=== PATIENT | female | born 1980 | race African-American/Black ===

== ENCOUNTER 2017-02-06 12:14 | Emergency (ER) | payer OTHER ==
[~2017-02-06] VITALS: Ht 162.6 cm; Wt 75.0 kg
[2017-02-06] MEDS ORDERED: PREN27TA3 PO (12:34)
[2017-02-06] MEDS ORDERED: MAGN250T9 PO (12:34)
[2017-02-06 13:38] LABS: BASO % 0.1 % (0.0-1.0); EOS # 0.1 K/mm3 (0.0-0.50); LARGE UNSTAINED CELL # 0.1 K/mm3 (0.0-0.4); LARGE UNSTAINED CELL % 1.4 % (0.0-4.0); LYMPH # 0.8 K/mm3 (1.5-4.5); LYMPH % 10.7 % (24.0-44.0); MEAN CORPUSCULAR HEMOGLOBIN 28.3 pg (27.0-33.0); MEAN CORPUSCULAR HGB CONC 33.3 g/dl (32.0-36.5); MEAN CORPUSCULAR VOLUME 84.8 fl (80.0-96.0); MONO # 0.3 K/mm3 (0.0-0.8); MONO % 3.4 % (0.0-5.0); NEUTROPHILS # 6.5 K/mm3 (1.8-7.7); NEUTROPHILS % 83.4 % (36.0-66.0); PLATELET COUNT, AUTOMATED 287 k/mm3 (150-450); RED CELL DISTRIBUTION WIDTH 14.3 % (11.5-14.5); WHITE BLOOD COUNT 7.7 K/mm3 (4.0-10.0)
[2017-02-06] MEDS ORDERED: MACR100C43 PO (14:16)
[2017-02-06] MEDS ORDERED: NITROFURANTOIN (MACROBID) 100 MG CAP PO ONE (14:30)
[2017-02-06 14:36] VITALS: BP 125/85
== END 2017-02-06 14:41 | disposition home or self-care (01) ==
LOC: M ED 12:14
DX: O23.10 Infections of bladder in pregnancy, unspecified trimester (principal); Z3A.13 13 weeks gestation of pregnancy

== ENCOUNTER 2017-05-16 07:37 | Outpatient (CLI) | payer OTHER ==
[~2017-05-16] VITALS: Ht 165.1 cm; Wt 84.5 kg
[~2017-05-16 07:37] MED LIST: MACR100C43 PO; MAGN250T9 PO; PREN27TA3 PO
[2017-05-16 08:16] VITALS: BP 135/86
--- NOTE | 2017-05-16 10:02 | IPNPDOC ---
Text Note Date of Service The patient was seen on 05/16/17. NOTE Fide is a 37yo with SIUP at 28+ wk who presents to L&D triage with chief complaint of scant dark brown vaginal spotting noted on a panty liner. course uncomplicated, has known fibroid uterus. Had an episode of spotting a few days ago and called triage line, kept an eye on it as instructed. She has occasional Saeid Valdivia, no consistent ctx or cramping. currently deployed so no recent intercourse. Feels good movement. Notes only prior whitish discharge, no vaginal itching or abnormal odor. Formal 20wk ultrasound reviewed: 4 medium fibroids, no placenta previa Vitals wnl, afebrile General: WDWN, resting comfortably in bed Abdomen: soft, NT, ND, gravid SSE (ZAINAB Gloria as database programmer analyst): copious thick white clumpy discharge noted that took a few daley swabs to remove from vaginal vault, no blood present in discharge or in vault SCE gently performed- closed/thick/high TAUS: tavarez IUP with cephalic presentation, IZABELLA 11cm, +FCA, +FM, anterior placenta with no obvious abnormalities NST: reassuring for gestational age, bl 130's, +accels, -decels, mod martina Grandfield: no ctx Labs: RADHA/WP: abundant budding yeast and hyphae, no clue cells or trichomonas Assessment: Fide is a 37yo with SIUP at 28+ wk with no obvious source for vaginal bleeding, no confirmed presence of blood on exam, no evidence of PTL, no placental abnormalities, but exam significant for yeast infection despite patient having no vaginal itching. Copious yeast-like discharge and abundant budding yeast and hyphae on RADHA/WP. Reassuring status with NST and IZABELLA 11cm. Vitals wnl. Plan: -Discharge to home -Rx 3 day clotrimazole cream to [facility], patient instructed how to use -Keep next OB appt 05/20 -Return precautions discussed Dr. Barby Christie MD [facility] VS,Fishbone, I+O VS, Fishbone, I+O Vital Signs Date Time Temp Pulse Resp B/P (MAP) Pulse Ox O2 Delivery O2 Flow Rate FiO2 05/16/17 08:16 99.0 82 20 135/86 (102) Room Air Barby Christie MD May 16, 2017 10:02
== END 2017-05-16 09:45 | disposition home or self-care (01) ==
LOC: M LDO 07:37
PROVIDERS: ATTEND Obstetrics & Gynecology
DX: O26.893 Other specified pregnancy related conditions, third trimester (principal); Z3A.28 28 weeks gestation of pregnancy; N89.8 Other specified noninflammatory disorders of vagina; D25.9 Leiomyoma of uterus, unspecified; B37.3 Candidiasis of vulva and vagina; O34.13 Maternal care for benign tumor of corpus uteri, third trimester

== ENCOUNTER 2017-06-20 11:57 | Inpatient (IN) | payer OTHER ==
[2017-06-20] MEDS ORDERED: NIFEdipine 10 MG CAP As Ordered (12:51)
[2017-06-20] MEDS: NIFEdipine 10 MG CAP PO ×2 (12:56→13:57)
[2017-06-20 13:00] LABS: AMPHETAMINES URINE REFLEX NEGATIVE (NEGATIVE); BARBITURATES URINE REFLEX NEGATIVE (NEGATIVE); BENZODIAZEPINES URINE REFLEX NEGATIVE (NEGATIVE); CANNABINOIDS URINE REFLEX NEGATIVE (NEGATIVE); COCAINE METABOLITE URINE REFLE NEGATIVE (NEGATIVE); METHADONE URINE REFLEX NEGATIVE (NEGATIVE); OPIATES URINE REFLEX NEGATIVE (NEGATIVE); PHENCYCLIDINE URINE REFLEX NEGATIVE (NEGATIVE)
[2017-06-20 13:01] LABS: CREATININE,RANDOM URINE 16.7 MG/DL
[2017-06-20 13:01] LABS: TOTAL PROTEIN,RANDOM URINE 125.9 MG/DL (0.0-12.0)
[2017-06-20 13:04] LABS: HEMATOCRIT 33.2 % (36.0-47.0); MEAN CORPUSCULAR HEMOGLOBIN 28.1 pg (27.0-33.0); MEAN CORPUSCULAR HGB CONC 33.1 g/dl (32.0-36.5); MEAN CORPUSCULAR VOLUME 84.7 fl (80.0-96.0); PLATELET COUNT, AUTOMATED 151 10^3/uL (150-450); RED BLOOD COUNT 3.92 10^6/uL (4.00-5.40); RED CELL DISTRIBUTION WIDTH 15.9 % (11.5-14.5); WHITE BLOOD COUNT 7.2 10^3/uL (4.0-10.0)
[2017-06-20 13:54] LABS: ALKALINE PHOSPHATASE 85 U/L (45-117); ALT/SGPT 42 U/L (12-78); ANION GAP 8 MEQ/L (8-16); AST/SGOT 51 U/L (7-37); BILIRUBIN,TOTAL 0.3 MG/DL (0.2-1.0); BLOOD UREA NITROGEN 8 MG/DL (7-18); CALCIUM LEVEL 9.5 MG/DL (8.5-10.1); CARBON DIOXIDE LEVEL 27 MEQ/L (21-32); CHLORIDE LEVEL 102 MEQ/L (98-107); CREATININE FOR GFR 0.59 MG/DL (0.55-1.02); GLOMERULAR FILTRATION RATE > 60.0 (>60); GLUCOSE, FASTING 71 MG/DL (70-100); POTASSIUM SERUM 4.1 MEQ/L (3.5-5.1); SODIUM LEVEL 137 MEQ/L (136-145); TOTAL PROTEIN 7.3 GM/DL (6.4-8.2)
[2017-06-20] MEDS ORDERED: LABETALOL HCL 100 MG/20 ML VIAL As Ordered (14:19)
[2017-06-20] MEDS: BETAMETHASONE SOLUSPAN 6MG/ML INJ 5ML (J0702) IM (14:34)
[2017-06-20] MEDS: LABETALOL HCL 100 MG/20 ML VIAL IV (14:42)
[2017-06-20] MEDS: LR 1,000 ML IV ×2 (14:49→22:21)
[2017-06-20] MEDS: diphenhydrAMINE INJ 50MG/ML VIAL (J1200) IV (15:28)
[2017-06-20] MEDS: PROCHLORPERAZINE 10 MG/2 ML VIAL (J0780) IV (15:46)
[2017-06-20] MEDS: ACETAMINOPHEN 500 MG TAB PO (17:17)
[2017-06-20 20:01] LABS: HEMATOCRIT 31.2 % (36.0-47.0); HEMOGLOBIN 10.4 g/dl (12.0-16.0); MEAN CORPUSCULAR HEMOGLOBIN 27.7 pg (27.0-33.0); MEAN CORPUSCULAR HGB CONC 33.3 g/dl (32.0-36.5); MEAN CORPUSCULAR VOLUME 83.2 fl (80.0-96.0); PLATELET COUNT, AUTOMATED 137 10^3/uL (150-450); RED BLOOD COUNT 3.75 10^6/uL (4.00-5.40); RED CELL DISTRIBUTION WIDTH 15.8 % (11.5-14.5); WHITE BLOOD COUNT 9.6 10^3/uL (4.0-10.0)
[2017-06-20 20:38] LABS: ALBUMIN 2.6 GM/DL (3.2-5.2); ALBUMIN/GLOBULIN RATIO 0.63 (1.00-1.93); ALKALINE PHOSPHATASE 79 U/L (45-117); ALT/SGPT 93 U/L (12-78); ANION GAP 8 MEQ/L (8-16); AST/SGOT 120 U/L (7-37); BILIRUBIN,TOTAL 0.5 MG/DL (0.2-1.0); BLOOD UREA NITROGEN 7 MG/DL (7-18); CALCIUM LEVEL 8.7 MG/DL (8.5-10.1); CARBON DIOXIDE LEVEL 24 MEQ/L (21-32); CHLORIDE LEVEL 103 MEQ/L (98-107); CREATININE FOR GFR 0.53 MG/DL (0.55-1.02); GLOMERULAR FILTRATION RATE > 60.0 (>60); GLUCOSE, FASTING 104 MG/DL (70-100); POTASSIUM SERUM 3.6 MEQ/L (3.5-5.1); SODIUM LEVEL 135 MEQ/L (136-145); TOTAL PROTEIN 6.7 GM/DL (6.4-8.2)
[2017-06-20] MEDS ORDERED: CALCIUM GLUCONATE 1,000 MG in D5W MINI-BAG PLUS 100 ML IV (22:45)
[2017-06-20] MEDS: MAG Sulf (L&D) 4 GM/100 ML 4 GM in APPROPRIATE DILUENT 1 EA IV (23:04)
[2017-06-20] MEDS: MAG Sulf (OBGYN) 20GM/500ML 20,000 MG in APPROPRIATE DILUENT 1 EA IV (23:27)
[2017-06-21] MEDS: LR 1,000 ML IV (06:21)
[2017-06-21 06:31] LABS: HEMATOCRIT 29.8 % (36.0-47.0); HEMOGLOBIN 9.9 g/dl (12.0-16.0); MEAN CORPUSCULAR HEMOGLOBIN 27.7 pg (27.0-33.0); MEAN CORPUSCULAR HGB CONC 33.2 g/dl (32.0-36.5); MEAN CORPUSCULAR VOLUME 83.5 fl (80.0-96.0); PLATELET COUNT, AUTOMATED 147 10^3/uL (150-450); RED BLOOD COUNT 3.57 10^6/uL (4.00-5.40); WHITE BLOOD COUNT 8.5 10^3/uL (4.0-10.0)
[2017-06-21 06:57] LABS: ALBUMIN 2.5 GM/DL (3.2-5.2); ALBUMIN/GLOBULIN RATIO 0.64 (1.00-1.93); ALKALINE PHOSPHATASE 74 U/L (45-117); ALT/SGPT 70 U/L (12-78); ANION GAP 12 MEQ/L (8-16); AST/SGOT 80 U/L (7-37); BILIRUBIN,TOTAL 0.4 MG/DL (0.2-1.0); BLOOD UREA NITROGEN 7 MG/DL (7-18); CALCIUM LEVEL 8.3 MG/DL (8.5-10.1); CARBON DIOXIDE LEVEL 23 MEQ/L (21-32); CHLORIDE LEVEL 100 MEQ/L (98-107); CREATININE FOR GFR 0.47 MG/DL (0.55-1.02); GLOMERULAR FILTRATION RATE > 60.0 (>60); GLUCOSE, FASTING 96 MG/DL (70-100); SODIUM LEVEL 135 MEQ/L (136-145); TOTAL PROTEIN 6.4 GM/DL (6.4-8.2)
[2017-06-21] MEDS: MAG Sulf (OBGYN) 20GM/500ML 20,000 MG in APPROPRIATE DILUENT 1 EA IV (09:41)
[2017-06-21 12:12] LABS: HEMOGLOBIN 10.8 g/dl (12.0-16.0); MEAN CORPUSCULAR HEMOGLOBIN 28.1 pg (27.0-33.0); MEAN CORPUSCULAR HGB CONC 33.8 g/dl (32.0-36.5); MEAN CORPUSCULAR VOLUME 83.1 fl (80.0-96.0); PLATELET COUNT, AUTOMATED 144 10^3/uL (150-450); RED BLOOD COUNT 3.85 10^6/uL (4.00-5.40); RED CELL DISTRIBUTION WIDTH 16.2 % (11.5-14.5); WHITE BLOOD COUNT 7.8 10^3/uL (4.0-10.0)
[2017-06-21 12:39] LABS: ALT/SGPT 69 U/L (12-78); AST/SGOT 65 U/L (7-37); BILIRUBIN,TOTAL 0.4 MG/DL (0.2-1.0); GLOMERULAR FILTRATION RATE > 60.0 (>60); LDH LACTATE DEHYDROGENASE 274 U/L (84-246); URIC ACID 6.5 MG/DL (2.6-6.0)
[2017-06-21 12:49] LABS: MAGNESIUM LEVEL 5.6 MG/DL (1.8-2.4)
[2017-06-21] MEDS: BETAMETHASONE SOLUSPAN 6MG/ML INJ 5ML (J0702) IM (14:20)
[2017-06-21] MEDS: LABETALOL 200 MG TAB PO (18:41)
[2017-06-22] MEDS: LABETALOL 200 MG TAB PO ×2 (06:00→17:46)
[2017-06-22 07:35] LABS: HEMATOCRIT 30.5 % (36.0-47.0); HEMOGLOBIN 10.2 g/dl (12.0-16.0); MEAN CORPUSCULAR HEMOGLOBIN 27.7 pg (27.0-33.0); MEAN CORPUSCULAR HGB CONC 33.4 g/dl (32.0-36.5); MEAN CORPUSCULAR VOLUME 82.9 fl (80.0-96.0); PLATELET COUNT, AUTOMATED 133 10^3/uL (150-450); RED BLOOD COUNT 3.68 10^6/uL (4.00-5.40); RED CELL DISTRIBUTION WIDTH 16.3 % (11.5-14.5); WHITE BLOOD COUNT 8.3 10^3/uL (4.0-10.0)
[2017-06-22 07:49] LABS: ALBUMIN 2.8 GM/DL (3.2-5.2); ALKALINE PHOSPHATASE 78 U/L (45-117); ALT/SGPT 49 U/L (12-78); ANION GAP 8 MEQ/L (8-16); AST/SGOT 33 U/L (7-37); BILIRUBIN,TOTAL 0.2 MG/DL (0.2-1.0); BLOOD UREA NITROGEN 9 MG/DL (7-18); CALCIUM LEVEL 7.7 MG/DL (8.5-10.1); CARBON DIOXIDE LEVEL 23 MEQ/L (21-32); CHLORIDE LEVEL 105 MEQ/L (98-107); CREATININE FOR GFR 0.56 MG/DL (0.55-1.02); GLOMERULAR FILTRATION RATE > 60.0 (>60); GLUCOSE, FASTING 94 MG/DL (70-100); LDH LACTATE DEHYDROGENASE 246 U/L (84-246); SODIUM LEVEL 136 MEQ/L (136-145); TOTAL PROTEIN 6.8 GM/DL (6.4-8.2); URIC ACID 6.3 MG/DL (2.6-6.0)
[2017-06-22] MEDS: PRENATAL VITAMINS CHEWABLE TABLET PO (08:06)
[2017-06-22] MEDS: NIFEdipine 10 MG CAP PO (19:37)
[2017-06-23] MEDS: NIFEdipine 10 MG CAP PO ×3 (06:06→22:00)
[2017-06-23] MEDS: LABETALOL 200 MG TAB PO ×2 (06:06→18:14)
[2017-06-23] MEDS: PRENATAL VITAMINS CHEWABLE TABLET PO (09:11)
[2017-06-24] MEDS ORDERED: CALCIUM GLUCONATE 1,000 MG in D5W MINI-BAG PLUS 100 ML IV (01:30)
[2017-06-24 01:48] LABS: HEMATOCRIT 32.9 % (36.0-47.0); HEMOGLOBIN 10.9 g/dl (12.0-16.0); MEAN CORPUSCULAR HEMOGLOBIN 28.3 pg (27.0-33.0); MEAN CORPUSCULAR HGB CONC 33.1 g/dl (32.0-36.5); MEAN CORPUSCULAR VOLUME 85.5 fl (80.0-96.0); PLATELET COUNT, AUTOMATED 149 10^3/uL (150-450); RED BLOOD COUNT 3.85 10^6/uL (4.00-5.40); RED CELL DISTRIBUTION WIDTH 16.2 % (11.5-14.5); WHITE BLOOD COUNT 7.2 10^3/uL (4.0-10.0)
[2017-06-24] MEDS: MAG Sulf (L&D) 4 GM/100 ML 4 GM in APPROPRIATE DILUENT 1 EA IV (01:50)
[2017-06-24] MEDS: LR 1,000 ML IV (01:50)
[2017-06-24] MEDS: miSOPROStol 25 MCG 1/4 TAB (S0191) PV (02:00)
[2017-06-24] MEDS ORDERED: LABETALOL HCL 100 MG/20 ML VIAL IV (02:00)
[2017-06-24 02:09] LABS: ALBUMIN 2.8 GM/DL (3.2-5.2); ALBUMIN/GLOBULIN RATIO 0.78 (1.00-1.93); ALKALINE PHOSPHATASE 88 U/L (45-117); ALT/SGPT 46 U/L (12-78); ANION GAP 10 MEQ/L (8-16); AST/SGOT 38 U/L (7-37); BILIRUBIN,TOTAL 0.2 MG/DL (0.2-1.0); BLOOD UREA NITROGEN 9 MG/DL (7-18); CALCIUM LEVEL 8.7 MG/DL (8.5-10.1); CARBON DIOXIDE LEVEL 25 MEQ/L (21-32); CHLORIDE LEVEL 103 MEQ/L (98-107); CREATININE FOR GFR 0.57 MG/DL (0.55-1.02); GLOMERULAR FILTRATION RATE > 60.0 (>60); GLUCOSE, FASTING 79 MG/DL (70-100); SODIUM LEVEL 138 MEQ/L (136-145); TOTAL PROTEIN 6.4 GM/DL (6.4-8.2)
[2017-06-24] MEDS: MAG Sulf (OBGYN) 20GM/500ML 20,000 MG in APPROPRIATE DILUENT 1 EA IV ×3 (02:09→22:08)
[2017-06-24] MEDS: AMPICILLIN SOD 2 GM in APPROPRIATE DILUENT 20 ML IV (02:09)
[2017-06-24] MEDS: LABETALOL HCL 100 MG/20 ML VIAL IV ×7 (02:12→03:03)
[2017-06-24] MEDS ORDERED: miSOPROStol 50 MCG 1/2 TAB (S0191) PO (03:00)
[2017-06-24] MEDS: FAMOTIDINE 20 MG TAB PO (03:01)
[2017-06-24] MEDS: hydrALAZINE INJ 20 MG/ML VIAL IV ×3 (04:41→09:45)
[2017-06-24] MEDS ORDERED: ceFAZolin 2 GM/D5W 50 ML IV BAG (J0690 PER 500MG) As Ordered (05:41)
[2017-06-24] MEDS ORDERED: BICITRA 30ML SOLN UDC As Ordered (05:41)
[2017-06-24] MEDS: BICITRA 30ML SOLN UDC PO (05:45)
[2017-06-24] MEDS ORDERED: OXYTOCIN INJ 10 UNITS/ML VIAL (J2590) As Ordered ×4 (05:59→07:27)
[2017-06-24] MEDS ORDERED: MORPHINE PRES-FREE INJ 10 MG/10 ML VIAL (J2274) As Ordered (05:59)
[2017-06-24] MEDS ORDERED: AMPICILLIN SOD 1 GM in APPROPRIATE DILUENT 10 ML IV (06:00)
[2017-06-24] MEDS ORDERED: NALOXONE INJ 0.4 MG/1 ML VIAL (J2310) IV ×2 (06:10)
[2017-06-24] MEDS ORDERED: ONDANSETRON 4MG/2ML VIAL (J2405) IV ×2 (06:10→08:30)
[2017-06-24] MEDS ORDERED: ONDANSETRON 4MG/2ML VIAL (J2405) As Ordered (06:45)
[2017-06-24] MEDS ORDERED: KETOROLAC 60 MG/2 ML VIAL (J1885) As Ordered (07:04)
[2017-06-24 07:20] LABS: CORD GAS ABE V -1.5; CORD GAS HCO3 A 23.6 MEQ/L; CORD GAS HCO3 V 26.1 MEQ/L; CORD GAS O2 SAT A 56.4 %; CORD GAS O2 SAT V 36.2 %; CORD GAS PCO2 A 52.8 mmHg; CORD GAS PCO2 V 55.1 mmHg; CORD GAS PH A 7.269 UNITS; CORD GAS PH V 7.293 UNITS; CORD GAS PO2 A 25.9 mmHg; CORD GAS PO2 V 18.2 mmHg; CORD GAS SBC A 20.2 MEQ/L; CORD GAS SBC V 21.7 MEQ/L; CORD GAS TCO2 A 25.3 MEQ/L; CORD GAS TCO2 V 27.8 MEQ/L
[2017-06-24] MEDS ORDERED: PROPOFOL 200 MG/20 ML VIAL As Ordered (07:44)
[2017-06-24] MEDS ORDERED: fentaNYL 100 MCG/2 ML INJECTION (J3010) IV (08:30)
[2017-06-24] MEDS ORDERED: MEPERIDINE INJ 25 MG/ML VIAL (J2175) IV (08:30)
[2017-06-24] MEDS ORDERED: NALBUPHINE HCL 10 MG/ML AMP (J2300) IV (08:30)
[2017-06-24] MEDS: DOCUSATE SODIUM 100 MG CAP PO ×2 (09:00→22:06)
[2017-06-24] MEDS: PRENATAL VITAMINS CHEWABLE TABLET PO (09:00)
[2017-06-24] MEDS: LABETALOL 200 MG TAB PO ×3 (09:15→17:04)
[2017-06-24] MEDS: miSOPROStol 200 MCG TAB (S0191) PR (09:30)
[2017-06-24] MEDS ORDERED: MEASLES,MUMPS,RUBELLA VACCINE INJ (MMR-II) (90707) SC (09:30)
[2017-06-24] MEDS: NIFEdipine 30 MG XL TAB PO ×2 (09:43→09:48)
[2017-06-24] MEDS: RHOGAM 300 MCG (1500 IU) INJ (J2790) IM (12:32)
[2017-06-24] MEDS: KETOROLAC 30 MG/ML VIAL (J1885) IV ×2 (13:07→19:01)
[2017-06-24] MEDS: METOCLOPRAMIDE INJ 10MG/2ML VIAL (J2765) IV (13:40)
[2017-06-24] MEDS: NALBUPHINE HCL 10 MG/ML AMP (J2300) IV (20:15)
[2017-06-25] MEDS: KETOROLAC 30 MG/ML VIAL (J1885) IV ×2 (01:03→07:18)
[2017-06-25] MEDS: LABETALOL 200 MG TAB PO ×3 (01:04→20:55)
[2017-06-25] MEDS: PERCOCET 5MG/325MG TAB PO ×3 (03:36→20:55)
[2017-06-25 06:26] LABS: HEMATOCRIT 23.3 % (36.0-47.0); MEAN CORPUSCULAR HGB CONC 33.5 g/dl (32.0-36.5); MEAN CORPUSCULAR VOLUME 83.5 fl (80.0-96.0); PLATELET COUNT, AUTOMATED 119 10^3/uL (150-450); RED BLOOD COUNT 2.79 10^6/uL (4.00-5.40); RED CELL DISTRIBUTION WIDTH 15.5 % (11.5-14.5); WHITE BLOOD COUNT 11.8 10^3/uL (4.0-10.0)
[2017-06-25 06:27] LABS: HEMOGLOBIN 7.8 g/dl (12.0-16.0)
[2017-06-25 06:48] LABS: ALT/SGPT 60 U/L (12-78); AST/SGOT 60 U/L (7-37); BILIRUBIN,TOTAL 0.2 MG/DL (0.2-1.0); CREATININE FOR GFR 0.47 MG/DL (0.55-1.02); GLOMERULAR FILTRATION RATE > 60.0 (>60); LDH LACTATE DEHYDROGENASE 525 U/L (84-246); URIC ACID 5.7 MG/DL (2.6-6.0)
[2017-06-25] MEDS: PRENATAL VITAMINS CHEWABLE TABLET PO (08:08)
[2017-06-25] MEDS: DOCUSATE SODIUM 100 MG CAP PO ×3 (08:08→21:00)
[2017-06-25] MEDS: NIFEdipine 30 MG XL TAB PO (08:11)
[2017-06-25] MEDS: IBUPROFEN 800 MG TAB PO ×2 (14:59→23:30)
[2017-06-26] MEDS: IBUPROFEN 800 MG TAB PO ×3 (06:44→22:07)
[2017-06-26] MEDS: PERCOCET 5MG/325MG TAB PO ×3 (08:08→20:25)
[2017-06-26] MEDS: DOCUSATE SODIUM 100 MG CAP PO ×2 (10:43→20:23)
[2017-06-26] MEDS: LABETALOL 200 MG TAB PO ×4 (10:43→22:07)
[2017-06-26] MEDS: PRENATAL VITAMINS CHEWABLE TABLET PO (10:43)
[2017-06-26] MEDS: NIFEdipine 30 MG XL TAB PO ×2 (10:44→20:21)
[2017-06-26] MEDS: LABETALOL HCL 100 MG/20 ML VIAL IV ×2 (12:14→12:43)
[2017-06-26 12:36] LABS: HEMATOCRIT 21.1 % (36.0-47.0); MEAN CORPUSCULAR HEMOGLOBIN 28.2 pg (27.0-33.0); MEAN CORPUSCULAR HGB CONC 33.2 g/dl (32.0-36.5); MEAN CORPUSCULAR VOLUME 85.1 fl (80.0-96.0); PLATELET COUNT, AUTOMATED 145 10^3/uL (150-450); RED BLOOD COUNT 2.48 10^6/uL (4.00-5.40); RED CELL DISTRIBUTION WIDTH 16.1 % (11.5-14.5); WHITE BLOOD COUNT 8.2 10^3/uL (4.0-10.0)
[2017-06-26] MEDS ORDERED: hydrALAZINE INJ 20 MG/ML VIAL As Ordered (13:05)
[2017-06-26 13:11] LABS: ALBUMIN 2.4 GM/DL (3.2-5.2); ALBUMIN/GLOBULIN RATIO 0.69 (1.00-1.93); ALKALINE PHOSPHATASE 63 U/L (45-117); ALT/SGPT 40 U/L (12-78); ANION GAP 7 MEQ/L (8-16); AST/SGOT 26 U/L (7-37); BILIRUBIN,TOTAL 0.2 MG/DL (0.2-1.0); BLOOD UREA NITROGEN 8 MG/DL (7-18); CALCIUM LEVEL 8.2 MG/DL (8.5-10.1); CARBON DIOXIDE LEVEL 30 MEQ/L (21-32); CHLORIDE LEVEL 104 MEQ/L (98-107); CREATININE FOR GFR 0.51 MG/DL (0.55-1.02); GLOMERULAR FILTRATION RATE > 60.0 (>60); GLUCOSE, FASTING 88 MG/DL (70-100); POTASSIUM SERUM 4.1 MEQ/L (3.5-5.1); SODIUM LEVEL 141 MEQ/L (136-145); TOTAL PROTEIN 5.9 GM/DL (6.4-8.2)
[2017-06-26] MEDS: hydrALAZINE INJ 20 MG/ML VIAL IV ×3 (13:14→23:00)
[2017-06-26] MEDS: NIFEdipine 10 MG CAP PO (14:12)
[2017-06-27] MEDS: **hydrALAZINE** 10 MG TAB PO ×4 (00:20→13:32)
[2017-06-27] MEDS: PERCOCET 5MG/325MG TAB PO ×2 (03:34→15:54)
[2017-06-27] MEDS: IBUPROFEN 800 MG TAB PO ×3 (06:53→22:45)
[2017-06-27 07:46] LABS: HEMATOCRIT 22.1 % (36.0-47.0); HEMOGLOBIN 7.1 g/dl (12.0-16.0); MEAN CORPUSCULAR HEMOGLOBIN 28.2 pg (27.0-33.0); MEAN CORPUSCULAR HGB CONC 32.1 g/dl (32.0-36.5); MEAN CORPUSCULAR VOLUME 87.7 fl (80.0-96.0); PLATELET COUNT, AUTOMATED 182 10^3/uL (150-450); RED BLOOD COUNT 2.52 10^6/uL (4.00-5.40); RED CELL DISTRIBUTION WIDTH 16.7 % (11.5-14.5); RETIC HEMOGLOBIN EQUIVALENT 30.9 pg (24-36); RETICULOCYTE # 120.2 10^9/L (17-77); RETICULOCYTE % 4.8 % (0.5-1.5); WHITE BLOOD COUNT 7.6 10^3/uL (4.0-10.0)
[2017-06-27 07:51] LABS: APPEARANCE, URINE HAZY (CLEAR); BACTERIA, URINE AUTO 1+ (NEGATIVE); BILIRUBIN, URINE AUTO NEGATIVE (NEGATIVE); BLOOD, URINE BLOOD 2+ (NEGATIVE); COLOR, URINE YELLOW (YELLOW); GLUCOSE, URINE (UA) AUTO NEGATIVE (NEGATIVE); KETONE, URINE AUTO NEGATIVE (NEGATIVE); LEUKOCYTE ESTERASE, URINE AUTO NEGATIVE (NEGATIVE); MUCUS, URINE SMALL (NEGATIVE); NITRITE, URINE AUTO NEGATIVE (NEGATIVE); PROTEIN, URINE AUTO 1+ mg/dL (NEGATIVE); RBC, URINE AUTO 27 /HPF (0-3); SPECIFIC GRAVITY URINE AUTO 1.016 (1.002-1.035); SQUAMOUS EPITHELIAL CELL UR AU 4 /HPF (0-6); UROBILINOGEN, URINE AUTO 0.2 mg/dL (0.0-2.0); WBC, URINE AUTO 7 /HPF (0-3)
[2017-06-27 08:11] LABS: BASO % 0.1 % (0.0-1.0); EOS # 0.1 10^3/uL (0.0-0.50); EOS % 1.3 % (0.0-3.0); HEMATOCRIT 22.3 % (36.0-47.0); HEMOGLOBIN 7.2 g/dl (12.0-16.0); IMMATURE GRANULOCYTE # 0.1 10^3/uL (0-0); IMMATURE GRANULOCYTE % 1.1 % (0-0); LYMPH # 1.5 10^3/uL (1.5-4.5); LYMPH % 19.4 % (24.0-44.0); MEAN CORPUSCULAR HEMOGLOBIN 28.2 pg (27.0-33.0); MEAN CORPUSCULAR HGB CONC 32.3 g/dl (32.0-36.5); MEAN CORPUSCULAR VOLUME 87.5 fl (80.0-96.0); MONO # 0.5 10^3/uL (0.0-0.8); MONO % 6.4 % (0.0-5.0); NEUTROPHILS # 5.6 10^3/uL (1.8-7.7); NEUTROPHILS % 71.7 % (36.0-66.0); PLATELET COUNT, AUTOMATED 184 10^3/uL (150-450); RED BLOOD COUNT 2.55 10^6/uL (4.00-5.40); RED CELL DISTRIBUTION WIDTH 16.6 % (11.5-14.5); WHITE BLOOD COUNT 7.9 10^3/uL (4.0-10.0)
[2017-06-27 08:13] LABS: CHOLESTEROL LEVEL 245 MG/DL (<200); CHOLESTEROL RISK RATIO 1.737 (<5); FERRITIN 72 NG/ML (8-252); HDL CHOLESTEROL 141 MG/DL (>40); IRON (FE) 52 UG/DL (50-170); LDL CHOLESTEROL 79.8 MG/DL (<100); NON-HDL-C 104 MG/DL; PERCENT SATURATION 15.4 % (13.2-45.0); TOTAL IRON BINDING CAPACITY 338 UG/DL (250-450); TRIGLYCERIDES LEVEL 121 MG/DL (<150)
[2017-06-27 08:26] LABS: REASON FOR REVIEW COMPREHENSIVE REVIEW; SLIDE REVIEW Report; SOURCE PERIPHERAL SMEAR
[2017-06-27 08:30] LABS: MAGNESIUM LEVEL 1.9 MG/DL (1.8-2.4)
[2017-06-27 08:31] LABS: ANION GAP 10 MEQ/L (8-16); BLOOD UREA NITROGEN 6 MG/DL (7-18); CALCIUM LEVEL 8.4 MG/DL (8.5-10.1); CARBON DIOXIDE LEVEL 27 MEQ/L (21-32); CHLORIDE LEVEL 105 MEQ/L (98-107); CREATININE FOR GFR 0.58 MG/DL (0.55-1.30); GLOMERULAR FILTRATION RATE > 60.0 (>60); GLUCOSE, FASTING 83 MG/DL (70-100); SODIUM LEVEL 142 MEQ/L (136-145)
[2017-06-27] MEDS: FERROUS SULFATE 325MG TAB PO (09:18)
[2017-06-27] MEDS: PRENATAL VITAMINS CHEWABLE TABLET PO (09:18)
[2017-06-27] MEDS: DOCUSATE SODIUM 100 MG CAP PO ×2 (09:18→22:08)
[2017-06-27] MEDS: ASCORBIC ACID 500 MG TAB PO (09:19)
[2017-06-27] MEDS: NIFEdipine 30 MG XL TAB PO ×2 (09:19→22:08)
[2017-06-27] MEDS: LABETALOL 200 MG TAB PO ×3 (09:22→22:08)
[2017-06-27] MEDS ORDERED: amLODIPine 5 MG TAB PO (22:45)
[2017-06-28] MEDS: LABETALOL 200 MG TAB PO ×4 (02:51→20:39)
[2017-06-28] MEDS: PERCOCET 5MG/325MG TAB PO ×2 (02:53→21:05)
[2017-06-28] MEDS: IBUPROFEN 800 MG TAB PO ×3 (06:17→22:17)
[2017-06-28 07:14] LABS: HEMATOCRIT 20.9 % (36.0-47.0); MEAN CORPUSCULAR HEMOGLOBIN 27.8 pg (27.0-33.0); MEAN CORPUSCULAR HGB CONC 31.6 g/dl (32.0-36.5); MEAN CORPUSCULAR VOLUME 88.2 fl (80.0-96.0); PLATELET COUNT, AUTOMATED 193 10^3/uL (150-450); RED BLOOD COUNT 2.37 10^6/uL (4.00-5.40); RED CELL DISTRIBUTION WIDTH 16.4 % (11.5-14.5); WHITE BLOOD COUNT 5.6 10^3/uL (4.0-10.0)
[2017-06-28 07:33] LABS: ANION GAP 8 MEQ/L (8-16); BLOOD UREA NITROGEN 7 MG/DL (7-18); CARBON DIOXIDE LEVEL 26 MEQ/L (21-32); CHLORIDE LEVEL 106 MEQ/L (98-107); CREATININE FOR GFR 0.56 MG/DL (0.55-1.30); GLOMERULAR FILTRATION RATE > 60.0 (>60); GLUCOSE, FASTING 81 MG/DL (70-100); MAGNESIUM LEVEL 1.5 MG/DL (1.8-2.4); POTASSIUM SERUM 3.7 MEQ/L (3.5-5.1); SODIUM LEVEL 140 MEQ/L (136-145)
[2017-06-28 07:46] LABS: HEMOGLOBIN 6.6 g/dl (12.0-16.0)
[2017-06-28] MEDS: ASCORBIC ACID 500 MG TAB PO (10:07)
[2017-06-28] MEDS: NIFEdipine 30 MG XL TAB PO ×2 (10:08→22:17)
[2017-06-28] MEDS: DOCUSATE SODIUM 100 MG CAP PO ×2 (10:08→20:39)
[2017-06-28] MEDS: PRENATAL VITAMINS CHEWABLE TABLET PO (10:08)
[2017-06-28] MEDS: FERROUS SULFATE 325MG TAB PO (10:08)
[2017-06-28 11:45] LABS: ESTIMATED AVERAGE GLUCOSE 103 MG/DL (60-110); HEMOGLOBIN A1c 5.2 %
[2017-06-28] MEDS: MAG SULF 1GM/100ML (MAG RUN) 1 GM in APPROPRIATE DILUENT 1 EA IV ×2 (15:12→16:22)
[2017-06-28] MEDS: ACETAMINOPHEN TAB 650MG DOSE (2X325MG) PO (17:33)
[2017-06-28] MEDS: diphenhydrAMINE INJ 50MG/ML VIAL (J1200) IV (17:34)
[2017-06-28 18:03] LABS: IMMEDIATE SPIN CROSSMATCH 1 2
[2017-06-28] MEDS: VERAPAMIL 40 MG TAB PO (22:17)
[2017-06-29] MEDS: LABETALOL 200 MG TAB PO ×4 (02:24→20:42)
[2017-06-29] MEDS: PERCOCET 5MG/325MG TAB PO ×4 (02:24→20:59)
[2017-06-29] MEDS: IBUPROFEN 800 MG TAB PO ×3 (06:27→22:26)
[2017-06-29] MEDS: VERAPAMIL 40 MG TAB PO ×4 (06:28→22:27)
[2017-06-29 06:38] LABS: MEAN CORPUSCULAR HEMOGLOBIN 28.3 pg (27.0-33.0); MEAN CORPUSCULAR HGB CONC 32.5 g/dl (32.0-36.5); PLATELET COUNT, AUTOMATED 243 10^3/uL (150-450); RED BLOOD COUNT 3.22 10^6/uL (4.00-5.40); RED CELL DISTRIBUTION WIDTH 15.7 % (11.5-14.5); WHITE BLOOD COUNT 6.4 10^3/uL (4.0-10.0)
[2017-06-29 06:45] LABS: HEMOGLOBIN 9.1 g/dl (12.0-16.0)
[2017-06-29 07:00] LABS: ALBUMIN 2.5 GM/DL (3.2-5.2); ALBUMIN/GLOBULIN RATIO 0.69 (1.00-1.93); ALKALINE PHOSPHATASE 65 U/L (45-117); ALT/SGPT 30 U/L (12-78); ANION GAP 5 MEQ/L (8-16); AST/SGOT 20 U/L (7-37); BILIRUBIN,DIRECT < 0.1 MG/DL (0.0-0.2); BILIRUBIN,TOTAL 0.3 MG/DL (0.2-1.0); BLOOD UREA NITROGEN 8 MG/DL (7-18); CALCIUM LEVEL 8.2 MG/DL (8.5-10.1); CARBON DIOXIDE LEVEL 28 MEQ/L (21-32); CHLORIDE LEVEL 106 MEQ/L (98-107); CREATININE FOR GFR 0.62 MG/DL (0.55-1.30); GLOMERULAR FILTRATION RATE > 60.0 (>60); GLUCOSE, FASTING 83 MG/DL (70-100); MAGNESIUM LEVEL 1.6 MG/DL (1.8-2.4); POTASSIUM SERUM 4.5 MEQ/L (3.5-5.1); SODIUM LEVEL 139 MEQ/L (136-145); TOTAL PROTEIN 6.1 GM/DL (6.4-8.2)
[2017-06-29] MEDS: DOCUSATE SODIUM 100 MG CAP PO ×2 (08:20→20:42)
[2017-06-29] MEDS: PRENATAL VITAMINS CHEWABLE TABLET PO (08:20)
[2017-06-29] MEDS: ASCORBIC ACID 500 MG TAB PO (08:20)
[2017-06-29] MEDS: FERROUS SULFATE 325MG TAB PO (08:20)
[2017-06-29] MEDS: MAG SULF 1GM/100ML (MAG RUN) 1 GM in APPROPRIATE DILUENT 1 EA IV ×2 (08:21→09:34)
[2017-06-30] MEDS: LABETALOL 200 MG TAB PO ×3 (02:00→14:00)
[2017-06-30 03:33] LABS: APPEARANCE, URINE HAZY (CLEAR); BACTERIA, URINE AUTO NEGATIVE (NEGATIVE); BILIRUBIN, URINE AUTO NEGATIVE (NEGATIVE); BLOOD, URINE BLOOD 3+ (NEGATIVE); COLOR, URINE YELLOW (YELLOW); GLUCOSE, URINE (UA) AUTO NEGATIVE (NEGATIVE); KETONE, URINE AUTO NEGATIVE (NEGATIVE); LEUKOCYTE ESTERASE, URINE AUTO 3+ (NEGATIVE); MUCUS, URINE SMALL (NEGATIVE); NITRITE, URINE AUTO NEGATIVE (NEGATIVE); PROTEIN, URINE AUTO NEGATIVE (NEGATIVE); RBC, URINE AUTO 6 /HPF (0-3); SPECIFIC GRAVITY URINE AUTO 1.011 (1.002-1.035); SQUAMOUS EPITHELIAL CELL UR AU 3 /HPF (0-6); UROBILINOGEN, URINE AUTO 0.2 mg/dL (0.0-2.0); WBC, URINE AUTO 46 /HPF (0-3)
[2017-06-30 03:49] LABS: OSMOLALITY URINE 469 MOSM/KG (500-800)
[2017-06-30 04:03] LABS: CREATININE,RANDOM URINE 47.5 MG/DL; SODIUM,RANDOM URINE 159 MEQ/L
[2017-06-30] MEDS ORDERED: FUROSEMIDE 20 MG TAB PO (06:00)
[2017-06-30] MEDS: IBUPROFEN 800 MG TAB PO ×2 (06:09→14:32)
[2017-06-30] MEDS: VERAPAMIL 40 MG TAB PO ×2 (06:10→14:00)
[2017-06-30 07:40] LABS: HEMOGLOBIN 9.4 g/dl (12.0-16.0); MEAN CORPUSCULAR HEMOGLOBIN 28.4 pg (27.0-33.0); MEAN CORPUSCULAR HGB CONC 32.4 g/dl (32.0-36.5); MEAN CORPUSCULAR VOLUME 87.6 fl (80.0-96.0); PLATELET COUNT, AUTOMATED 251 10^3/uL (150-450); RED BLOOD COUNT 3.31 10^6/uL (4.00-5.40); RED CELL DISTRIBUTION WIDTH 15.9 % (11.5-14.5); WHITE BLOOD COUNT 6.2 10^3/uL (4.0-10.0)
[2017-06-30 08:15] LABS: ALBUMIN 2.9 GM/DL (3.2-5.2); ALBUMIN/GLOBULIN RATIO 0.85 (1.00-1.93); ALKALINE PHOSPHATASE 71 U/L (45-117); ALT/SGPT 32 U/L (12-78); ANION GAP 7 MEQ/L (8-16); AST/SGOT 21 U/L (7-37); BILIRUBIN,DIRECT 0.1 MG/DL (0.0-0.2); BILIRUBIN,TOTAL 0.4 MG/DL (0.2-1.0); BLOOD UREA NITROGEN 8 MG/DL (7-18); CALCIUM LEVEL 8.6 MG/DL (8.5-10.1); CARBON DIOXIDE LEVEL 27 MEQ/L (21-32); CHLORIDE LEVEL 105 MEQ/L (98-107); CREATININE FOR GFR 0.62 MG/DL (0.55-1.30); GLOMERULAR FILTRATION RATE > 60.0 (>60); GLUCOSE, FASTING 78 MG/DL (70-100); MAGNESIUM LEVEL 1.6 MG/DL (1.8-2.4); NT-PRO BNP 134 PG/ML (<125); POTASSIUM SERUM 4.4 MEQ/L (3.5-5.1); SODIUM LEVEL 139 MEQ/L (136-145); TOTAL PROTEIN 6.3 GM/DL (6.4-8.2)
[2017-06-30 08:37] LABS: OSMOLALITY SERUM 283 MOSM/KG (275-295)
[2017-06-30] MEDS: DOCUSATE SODIUM 100 MG CAP PO (08:46)
[2017-06-30] MEDS: ASCORBIC ACID 500 MG TAB PO (08:46)
[2017-06-30] MEDS: PRENATAL VITAMINS CHEWABLE TABLET PO (08:46)
[2017-06-30] MEDS: FERROUS SULFATE 325MG TAB PO (08:46)
[2017-06-30] MEDS: MIRALAX *UNIT DOSE* 17GM PACKET PO (08:46)
[2017-06-30] MEDS ORDERED: MAGNESIUM OXIDE 400 MG TAB (MAG-OX) PO (09:00)
[2017-06-30] MEDS ORDERED: MAG SULF 1GM/100ML (MAG RUN) 1 GM in APPROPRIATE DILUENT 1 EA IV (12:00)
[2017-07-01 08:07] LABS: METANEPHRINE PLASMA 35 pg/mL (0-62); NORMETANEPHRINE PLASMA 148 pg/mL (0-145)
== END 2017-06-30 15:25 | disposition home or self-care (01) | DRG 765 ==
LOC: M LDO 11:57 → M OBS 06-23 20:01 → M LDI 06-24 00:49 → M OBS 06-25 15:08 → M LDI 17:06 → M OBS 06-21 20:12
PROC: 10D00Z1 Extraction of Products of Conception, Low, Open Approach (ICD-10-PCS; principal; 2017-06-24 06:10)
PROC: 0UB90ZZ Excision of Uterus, Open Approach (ICD-10-PCS; 2017-06-24 06:10)
PROC: 30233N1 Transfusion of Nonautologous Red Blood Cells into Peripheral Vein, Percutaneous Approach (ICD-10-PCS; 2017-06-24 06:10)
DX: O14.14 Severe pre-eclampsia complicating childbirth (principal); D62 Acute posthemorrhagic anemia; Z37.0 Single live birth; Z3A.32 32 weeks gestation of pregnancy; O76 Abnormality in fetal heart rate and rhythm complicating labor and delivery; D25.9 Leiomyoma of uterus, unspecified; O34.13 Maternal care for benign tumor of corpus uteri, third trimester; O09.523 Supervision of elderly multigravida, third trimester; I16.0 Hypertensive urgency; I34.0 Nonrheumatic mitral (valve) insufficiency; R01.1 Cardiac murmur, unspecified; O99.03 Anemia complicating the puerperium

== ENCOUNTER 2018-07-27 04:05 | Emergency (ER) | payer OTHER ==
[~2018-07-27] VITALS: Ht 167.6 cm; Wt 72.7 kg
[~2018-07-27 04:05] MED LIST changes: +ADVI200C5 PO; +CALA80TA PO; +COLA100C5 PO; +IRON65TA PO; +LABE300T19 PO; +MIRA33504 PO; +NIFE20CA PO; +OXYC1TAB23 PO
[2018-07-27] MEDS ORDERED: NS 1,000 ML IV ONE (05:30)
[2018-07-27] MEDS ORDERED: ONDANSETRON 4MG/2ML VIAL (J2405) IV ONE (05:30)
[2018-07-27 05:35] LABS: HEMATOCRIT 38.2 % (36.0-47.0); HEMOGLOBIN 12.2 g/dl (12.0-15.5); LYMPH % 3.5 % (24.0-44.0); MEAN CORPUSCULAR HEMOGLOBIN 27.3 pg (27.0-33.0); MEAN CORPUSCULAR HGB CONC 31.9 g/dl (32.0-36.5); MEAN CORPUSCULAR VOLUME 85.5 fl (80.0-96.0); MONO # 0.3 10^3/uL (0.0-0.8); MONO % 3.7 % (0.0-5.0); NEUTROPHILS # 6.4 10^3/uL (1.8-7.7); NEUTROPHILS % 92.5 % (36.0-66.0); PLATELET COUNT, AUTOMATED 290 10^3/uL (150-450); RED BLOOD COUNT 4.47 10^6/uL (4.00-5.40); WHITE BLOOD COUNT 6.9 10^3/uL (4.0-10.0)
[2018-07-27 05:39] LABS: HCG, SERUM QUALITATIVE NEGATIVE (NEGATIVE)
[2018-07-27 05:48] LABS: ALBUMIN 4.4 GM/DL (3.2-5.2); ALT/SGPT 22 U/L (12-78); BILIRUBIN,DIRECT 0.2 MG/DL (0.0-0.2); BILIRUBIN,TOTAL 0.8 MG/DL (0.2-1.0); BLOOD UREA NITROGEN 12 MG/DL (7-18); CALCIUM LEVEL 9.1 MG/DL (8.5-10.1); CARBON DIOXIDE LEVEL 25 MEQ/L (21-32); CHLORIDE LEVEL 106 MEQ/L (98-107); CREATININE FOR GFR 0.78 MG/DL (0.55-1.30); GLOMERULAR FILTRATION RATE > 60.0 (>60); GLUCOSE, FASTING 105 MG/DL (70-100); LIPASE 114 U/L (73-393); SODIUM LEVEL 140 MEQ/L (136-145); TOTAL PROTEIN 7.9 GM/DL (6.4-8.2)
[2018-07-27 05:54] LABS: LYMPH # 0.2 10^3/uL (1.5-4.5)
[2018-07-27] MEDS ORDERED: ONDA4TAB6 PO (06:47)
[2018-07-27 07:04] VITALS: BP 143/71
== END 2018-07-27 07:06 | disposition home or self-care (01) ==
LOC: M ED 04:05
DX: A08.4 Viral intestinal infection, unspecified (principal); J45.909 Unspecified asthma, uncomplicated
CPT/HCPCS: 80048; 80076; 83690; 84703; 85025; 96374; 99284; J2405